=== PATIENT | female | born 1975 | race Caucasian/White ===

== ENCOUNTER 2021-05-02 21:19 | Emergency (ER) | payer BC, OTHER, SELFPAY ==
[2021-05-02 21:30] VITALS: BP 124/90; PULSE 87; RESP 18; TEMP 36.4; O2SAT 98
--- NOTE | 2021-05-02 23:31 | ED.GENADULT ---
HPI - General Adult General Chief complaint: Unspecified Stated complaint: sciatic pain Time Seen by Provider: 05/02/21 23:22 History of Present Illness HPI narrative: low back pain for several days. Bilateral. Intermittently radiates down the back of each leg. Started on norco by pcp. Came in tonight because the pain was keeping her from sleeping. No weakness, numbness, fever, urinary or bowel symptoms. Related Data Allergies Allergy/AdvReac Type Severity Reaction Status Date / Time latex Allergy Mild Swelling Verified 05/02/21 23:24 Penicillins Allergy Unknown Other Verified 05/02/21 23:24 CODIENE Allergy Mild N/V Uncoded 05/02/21 23:24 PCN Allergy Mild Rash Uncoded 05/02/21 23:24 CODEINE (Generic Allergy) Allergy Unknown Y Uncoded 05/02/21 23:24 NFA, NO LATEX ALLERGIES Allergy Unknown Nausea and Uncoded 05/02/21 23:24 Vomiting PCN-RASH, CODEINE-N/V Allergy Unknown Rash Uncoded 05/02/21 23:24 Review of Systems Review of Systems: All systems reviewed & are unremarkable except as noted in HPI and below PMFSH Social History Social History Gender identity (if verbalized by the patient): Female Sexual Orientation (if Verbalized by the Patient): Straight or Heterosexual Exam Const: General: healthy appearing, no acute distress and alert Orientation/consciousness: patient oriented x3 HENMT: Head: normal to inspection Neck: Neck: normal visual inspection Chest: Chest palpation & inspection: no tenderness Resp: Effort & Inspection: normal respiratory effort Auscultation: clear to auscultation bilaterally, no rales, no rhonchi and no wheezes Cardio: Jugular venous distension: no JVD Rate: regular rate Rhythm: regular rhythm Heart sounds: no murmurs : General: Yes no CVA tenderness Back/Spine/Pelvis: Thoracic/Lumbar Spine: paraspinal muscle tenderness bilaterally in the mid lumbar and in the lower lumbar Pelvis: buttock tenderness bilaterally Skin: General skin exam: normal color Neuro: General: patient oriented x3 and moves all extremities Speech: normal speech Motor exam (neuro): 5/5 motor strength present throughout Sensory Exam: normal sensation Extrem: General: no edema Psych: Appearance: well kempt Affect: normal affect Course Vital Signs Vital signs: Vital Signs Temperature 36.4 C L 05/02/21 21:30 Pulse Rate 87 05/02/21 21:30 Respiratory Rate 18 05/02/21 21:30 Blood Pressure 124/90 05/02/21 21:30 Pulse Oximetry 98 05/02/21 21:30 Temperature 36.4 C 05/03/21 02:54 Pulse Rate 88 05/03/21 02:54 Respiratory Rate 18 05/03/21 02:54 Blood Pressure 123/87 05/03/21 02:54 Pulse Oximetry 99 05/03/21 02:54 Medical Decision Making MDM Narrative Medical decision making narrative: Sciatica without any worrisome elements in history or exam Medical Records Medical records reviewed: Yes I reviewed the external patient's medical records. Vital Signs Vital Signs: Vital Signs Temperature 36.4 C L 05/02/21 21:30 Pulse Rate 87 05/02/21 21:30 Respiratory Rate 18 05/02/21 21:30 Blood Pressure 124/90 05/02/21 21:30 Pulse Oximetry 98 05/02/21 21:30 Temperature 36.4 C 05/03/21 02:54 Pulse Rate 88 05/03/21 02:54 Respiratory Rate 18 05/03/21 02:54 Blood Pressure 123/87 05/03/21 02:54 Pulse Oximetry 99 05/03/21 02:54 Discharge Plan Discharge Clinical Impression: Sciatica Patient Disposition: Home, Self-Care Condition: Stable Instructions: Sciatica (ED) Prescriptions: New methylprednisolone [Medrol (Carl)] 4 mg tablets,dose pack See Rx Instructions .ROUTE .COMPLEX Qty: 21 RF: 0 cyclobenzaprine 10 mg tablet 10 mg PO TID PRN (Reason: muscle spasm) Qty: 20 RF: 0 Follow-up/Referrals: Francisco,Pratik Lujan MD [Primary Care Provider] -
--- NOTE | 2021-05-02 23:43 | PC.NURSE ---
Pt presents to ED with complaints of what she believes to be sciatic pain. 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 Pt seen by pcp yesterday and prescribed norco of which she has taken with no relief. Pt pacing room due to pain. Pt advised to press call button for assistance.
[2021-05-03] MEDS: DEXAMETHASONE SOD PHOS INJ 4 MG/ML VIAL 10 MG IM (00:04)
[2021-05-03] MEDS: diazePAM INJ (*CRX) 10 MG/2 ML SYRINGE 5 MG IM (00:04)
--- NOTE | 2021-05-03 00:19 | PC.NURSE ---
Pt resting on cart in its lowest position with call button and personal items with call button and personal items within reach. Pt states she feels better and pain is now rated 04/10. States she is able to lie down without discomfort. Will notify EDMD.
--- NOTE | 2021-05-03 01:38 | PC.NURSE ---
Pt resting on cart in its lowest position with call button and personal items within reach. Pt in no obvious distress and advised to press call button for assistance.
[2021-05-03 02:54] VITALS: BP 123/87; PULSE 88; RESP 18; TEMP 36.4; O2SAT 99
== END 2021-05-03 02:56 | disposition home or self-care (01) ==
PROVIDERS: Emergency Provider Emergency Medicine; PCP Emergency Medicine
DX: M54.42 Lumbago with sciatica, left side (principal); M54.41 Lumbago with sciatica, right side
CPT/HCPCS: 96372; 99284; J1100; J3360